=== PATIENT | female | born 1995 | race Caucasian/White ===

== ENCOUNTER 2017-12-01 13:46 | Emergency (ER) | payer BC ==
[2017-12-01] MEDS ORDERED: IPRATROPIUM/ALBUTEROL 0.5-2.5 MG/3 ML AMPUL NEB ONE (14:22)
[2017-12-01] MEDS ORDERED: PREDNISONE 20 MG TABLET PO ONE (14:22)
[2017-12-01] MEDS ORDERED: LORAZEPAM 0.5 MG TABLET PO ONE (14:22)
--- NOTE | 2017-12-01 14:25 | ER Document Report ---
ED Respiratory Problem - General Chief Complaint: Asthma Exacerbation Stated Complaint: DIFFICULTY BREATHING Time Seen by Provider: 12/01/17 14:18 Notes: Chief complaint: Wheezing History of complain:( obtained from----patient) 22 years old female with a history of asthma 2 hours prior to arrival suddenly started having shortness of breath and wheezing, took her inhaler without improvement therefore present to the ED. She thinks that she was exposed to somebody's perfume which triggered it. Denies any fever chills or other constitutional symptoms. Onset: Sudden Duration: Last few hours Severity: Moderate Quality: Wheezing Context: History of asthma Exacerbating factor and relieving factors: Perfumes REVIEW OF SYSTEMS: CONSTITUTIONAL : Denies fever, chills, or sweats. Denies recent illness. EENT: Denies eye, ear, throat, or mouth pain or symptoms. Denies nasal or sinus congestion or discharge. Denies throat, tongue, or mouth swelling or difficulty swallowing. CARDIOVASCULAR: Denies chest pain. Denies palpitations or racing or irregular heart beat. Denies ankle edema. RESPIRATORY: Denies cough, cold, or chest congestion. Denies shortness of breath, difficulty breathing, or wheezing. GASTROINTESTINAL: Denies distention. Denies nausea, vomiting, or diarrhea. Denies blood in vomitus, stools, or per rectum. Denies black, tarry stools. Denies constipation. GENITOURINARY: Denies difficulty urinating, painful urination, burning, frequency, blood in urine, or discharge. FEMALE GENITOURINARY: Denies vaginal bleeding, heavy or abnormal periods, irregular periods. Denies vaginal discharge or odor. MUSCULOSKELETAL: Denies back or neck pain or stiffness. Denies joint pain or swelling. SKIN: Denies rash, lesions or sores. HEMATOLOGIC : Denies easy bruising or bleeding. LYMPHATIC: Denies swollen, enlarged glands. NEUROLOGICAL: Denies confusion or altered mental status. Denies passing out or loss of consciousness. Denies dizziness or lightheadedness. Denies headache. Denies weakness or paralysis or loss of use of either side. Denies problems with gait or speech. Denies sensory loss, numbness, or tingling. Denies seizures. PSYCHIATRIC: Denies anxiety or stress. Denies depression, suicidal ideation, or homicidal ideation. ALL OTHER SYSTEMS REVIEWED AND NEGATIVE. PHYSICAL EXAMINATION: GENERAL: Well-appearing, well-nourished and in no acute distress. HEAD: Atraumatic, normocephalic. EYES: Pupils equal round and reactive to light, extraocular movements intact, conjunctiva are normal. ENT: Nares patent, oropharynx clear without exudates. Moist mucous membranes. NECK: Normal range of motion, supple without lymphadenopathy LUNGS: Breath sounds to auscultation bilaterally and equal. No wheezes rales or rhonchi. Bilaterally decreased breath sounds HEART: Regular rate and rhythm without murmurs ABDOMEN: Soft, nontender, nondistended abdomen. No guarding, no rebound. No masses appreciated. Examination of genitals-deferred Musculoskeletal: Normal range of motion, no pitting or edema. No cyanosis. NEUROLOGICAL: Cranial nerves grossly intact. Normal speech, normal gait. Normal sensory, motor exams PSYCH: Normal mood, normal affect. SKIN: Warm, Dry, normal turgor, no rashes or lesions noted. Dictation was performed using [employer] voice recognition software TRAVEL OUTSIDE OF THE [place] IN LAST 30 DAYS: No - HPI Notes: Dictated - Related Data Allergies/Adverse Reactions: Penicillins Allergy (Verified 12/01/17 13:51) Past Medical History - Social History Smoking Status: Never Smoker Chew tobacco use (# tins/day): No Frequency of alcohol use: Occasional Drug Abuse: None Lives with: Family Family History: Reviewed & Not Pertinent Patient has suicidal ideation: No Patient has homicidal ideation: No Renal/ Medical History: Denies: Hx Peritoneal Dialysis Musculoskeletal Medical History: Reports Hx Arthritis Review of Systems - Review of Systems Notes: Dictated Physical Exam - Vital signs Vitals: Temp Pulse Resp BP Pulse Ox 99.0 F 91 28 H 138/81 H 100 12/01/17 13:53 12/01/17 13:53 12/01/17 13:53 12/01/17 13:53 12/01/17 13:53 - Notes Notes: Dictated Course - Re-evaluation Re-evalutation: 12/01/17 15:08 Breathing improved after the breathing treatment - Vital Signs Vital signs: Temp Pulse Resp BP Pulse Ox 99.0 F 91 28 H 138/81 H 100 12/01/17 13:53 12/01/17 13:53 12/01/17 13:53 12/01/17 13:53 12/01/17 13:53 Discharge - Discharge Clinical Impression: Anxious reaction Asthma attack Qualifiers: Asthma severity: moderate Asthma persistence: unspecified Qualified Code(s): J45.901 - Unspecified asthma with (acute) exacerbation Condition: Fair Disposition: HOME, SELF-CARE Instructions: Asthma ([facility]) Prescriptions: Budesonide/Formoterol Fumarate [Symbicort 80-4.5 Mcg Inhaler] 10.2 gm IH BID #1 [id number] Prednisone [Sterapred] 5 mg PO ASDIR #1 tab.[id number]
[2017-12-01 15:34] VITALS: BP 130/68
== END 2017-12-01 15:32 | disposition home or self-care (01) ==
LOC: ER 13:46
DX: F41.1 Generalized anxiety disorder (principal); J45.901 Unspecified asthma with (acute) exacerbation; Z88.0 Allergy status to penicillin
CPT/HCPCS: 94640; 99284; J7512; J7620